=== PATIENT | female | born 1960 | race Caucasian/White ===

== ENCOUNTER → 2016-11-08 | Outpatient (CLI) | payer BC | LOC: MC.RAD 16:48 | DX: Z12.31 Encounter for screening mammogram for malignant neoplasm of breast (principal) ==

== ENCOUNTER → 2018-06-14 | Outpatient (CLI) | payer BC | LOC: MC.RAD 11:30 | DX: Z12.31 Encounter for screening mammogram for malignant neoplasm of breast (principal) ==

== ENCOUNTER → 2020-09-22 | Outpatient (CLI) | payer BC | LOC: MC.RAD 08:30 | DX: Z12.31 Encounter for screening mammogram for malignant neoplasm of breast (principal) ==

== ENCOUNTER 2020-11-05 07:29 | Day surgery (SDC) | payer BC ==
[~2020-11-05] VITALS: Ht 147.3 cm; Wt 66.8 kg
[2020-11-05 07:51] VITALS: BP 139/85; PULSE 70; TEMP 98.1
[2020-11-05 09:25] VITALS: BP 111/75; PULSE 69
--- NOTE | 2020-11-05 09:25 | NUR ---
Patient returns to [facility] per cart after having colonoscopy and is awake and alert. Transfers from cart to recliner with two person assist. IV fluids infusing and site is free of redness. Denies nausea or abdominal pain.
[2020-11-05 09:40] VITALS: BP 119/79; PULSE 56
--- NOTE | 2020-11-05 09:40 | NUR ---
Resting and drinking water. Offered snack and refuses. States that she just wants to drink water.
[2020-11-05 09:55] VITALS: BP 132/83; PULSE 50
--- NOTE | 2020-11-05 09:55 | NUR ---
Dr. Nicole here and talks with the patient and all quesitons answered.
--- NOTE | 2020-11-05 10:07 | NUR ---
IV discontinued and site is free of redness. Patient dresses self.
--- NOTE | 2020-11-05 10:20 | NUR ---
Dismissal instructions given and signed. Patient verbalzies understanding of these. Patient dismissed to home driven by spouse and taken to the front door per wheelchair and assisted into vehicle with instructions in hand by this RN.
== END 2020-11-05 10:20 | disposition home or self-care (01) ==
LOC: SDCO 07:29
DX: Z12.11 Encounter for screening for malignant neoplasm of colon (principal); D12.5 Benign neoplasm of sigmoid colon; K57.30 Diverticulosis of large intestine without perforation or abscess without bleeding; M19.90 Unspecified osteoarthritis, unspecified site; E66.9 Obesity, unspecified; R31.29 Other microscopic hematuria; Z20.822 Contact with and (suspected) exposure to COVID-19; Z68.39 Body mass index [BMI] 39.0-39.9, adult; Z79.899 Other long term (current) drug therapy; Z83.71 Family history of colonic polyps
CPT/HCPCS: J2704; J7120

== ENCOUNTER → 2021-09-28 | Outpatient (CLI) | payer BC | LOC: MC.RAD 09:12 | DX: Z12.31 Encounter for screening mammogram for malignant neoplasm of breast (principal); Z00.00 Encounter for general adult medical examination without abnormal findings; N64.89 Other specified disorders of breast ==

== ENCOUNTER → 2021-10-01 | Outpatient (CLI) | payer BC | LOC: MC.RAD 14:00 | DX: Z12.31 Encounter for screening mammogram for malignant neoplasm of breast (principal); N63.11 Unspecified lump in the right breast, upper outer quadrant ==